=== PATIENT | female | born 1960 | race Caucasian/White ===

== ENCOUNTER → 2017-07-24 | Outpatient (CLI) | payer MEDICARE ==
--- NOTE | 2017-07-24 09:34 | XR ---
EXAMINATION TYPE: XR chest 2V DATE OF EXAM: 07/24/2017 COMPARISON: CT chest August 24, 2015 HISTORY: Assess DJD per order. Chest pain for 2 weeks per patient. TECHNIQUE: Frontal and lateral views of the chest are obtained. FINDINGS: There is no focal air space opacity, pleural effusion, or pneumothorax seen. The cardiac silhouette size is within normal limits. There is partial visualization of fusion hardware in the lum bar spine. There is some multilevel mild to moderate spurring in lower thoracic spine seen better on prior CT. IMPRESSION: No acute cardiopulmonary process. No significant change from prior CT.
== END | disposition home or self-care (01) ==
LOC: RADXRMAIN 09:10
PROVIDERS: ATTEND Physical Medicine & Rehabilitation
DX: L02.91 Cutaneous abscess, unspecified (principal)
CPT/HCPCS: 71020

== ENCOUNTER → 2017-08-27 | Outpatient (CLI) | payer MEDICARE ==
--- NOTE | 2017-08-27 09:20 | CT ---
EXAMINATION TYPE: CT brain wo con DATE OF EXAM: 08/27/2017 COMPARISON: 10/04/2014 HISTORY: 57-year-old female Headache TECHNIQUE: Examination was done in axial plane without intravenous contrast. Coronal and sagittal r econstructions performed. CT DLP: 1213 mGycm Automated exposure control for dose reduction was used. FINDINGS: There is no evidence of acute intracranial hemorrhage, acute ischemic changes, mass, mass-effect, or extra-axial fluid collection. There is no effacement of cerebral sulci or basal subarachnoid cister ns. There is no hydrocephalus. There is no midline shift. Torres-white matter distinction is preserv ed. There are mild to moderate patchy white matter hypodensities in both cerebral hemispheres. This appea rs to show some progression from 10/04/2014. Paranasal sinuses and mastoid air cells are pneumatized. Leftward nasal septal deviation. Orbits and globes are intact. IMPRESSION: 1. No acute intracranial abnormality seen. 2. [id number] patchy white matter hypodensities seem to have progressed from 10/04/2014. These are nonspecific and may relate to progressive changes of chronic small vessel ischemic disease. Demye linating process could also be considered in the correct clinical setting. MRI can be considered.
== END | disposition home or self-care (01) ==
LOC: RADCTMAIN 07:27
PROVIDERS: ATTEND Physical Medicine & Rehabilitation
DX: I67.82 Cerebral ischemia (principal); R90.82 White matter disease, unspecified
CPT/HCPCS: 70450

== ENCOUNTER → 2020-06-26 | Outpatient (CLI) | payer MEDICARE ==
--- NOTE | 2020-06-26 11:39 | USB ---
Reason for exam: clinical finding. History: Patient has history of breast cancer at age 45. Family history of breast cancer in mother at age 70 and breast cancer in grandmother at age 52. Mastectomy of both breasts, 2005. Indicated problem(s): palpable abnormality, lump or thickening, and pain in the left breast. Physical Findings: Nurse Summary: patient states "lump pooch" always but getting bigger (nurse dw). US Breast Axilla LT Left limited breast ultrasound including focal area of concern, retroareolar and axilla demonstrates no cystic or solid lesion seen. Pouching of tissue, no fluid or masses seen. These results were verbally communicated with the patient and result sheet given to the patient on 06/26/20. ASSESSMENT: Negative, BI-RAD 1 RECOMMENDATION: Clinical management of the left breast. Manage patient on a clinical basis.
--- NOTE | 2020-06-26 15:12 | CT ---
EXAMINATION TYPE: CT ChestAbdPelvis w con DATE OF EXAM: 06/26/2020 INDICATION: left side arm, shoulder, axilla, chest pain, history of breast ca COMPARISON: 08/24/2015 CT DLP: 2910.4 mGycm CONTRAST: Performed with Oral Contrast and with IV Contrast, patient injected with 100 mL of Isovue 300. TECHNIQUE: Axial images at 5 mm thick sections. Reconstructed images in the coronal plane. Delayed images through the kidneys. FINDINGS: CT CHEST: Portion of the thyroid visualized is normal. There is a 1.2 x 1.0 cm density within the right anterior medial midlung. Series 4 image 37. This is a new finding. Metastasis is not excluded. Workup with PET CT is recommended. No enlarged mediastinal or hilar adenopathy is evident. . Subtle 0.6 cm lymph node may be along the r ight diaphragm. Series 3 image 41. The ascending aorta diameter at the level of the main pulmonary artery is 3.3 cm. The main pulmonary artery diameter at the bifurcation is 2.[address] ABDOMEN: Liver: Normal Spleen: Normal Pancreas: Normal Adrenal glands: The adrenal glands are normal. Gallbladder: Surgically absent Kidneys: No masses are evident. No hydronephrosis is present. No cysts are present. Delayed images were obtained through the kidneys, which remain unremarkable. Aorta: Vascular calcification is within the aorta. Inferior vena cava: Normal. CT PELVIS: Loops of bowel within the abdomen and pelvis are normal. There are loops of bowel which are incom pletely distended or lack oral contrast limiting their evaluation. Appendix: Normal as visualized. Urinary bladder: Normal. Genitourinary structures: Uterus appears unremarkable. Adnexa are normal. Osseous structures: Diffuse osteolysis through the lumbar spine is present. There is fixation rods an d pedicle screws present. No collapse is identified. Degenerative disc changes are present. Findings appear stable from 08/24/2015. Schmorl's node or a small lytic areas within the inferior T12 vertebral body. This is new from 2015. A superior T12 Schmorl's node is stable. IMPRESSIONS: 1. New 1.2 x 1.0 cm anterior medial right upper lung field nodule. Additional workup with PET CT is r ecommended. 2. Suspicious abnormality to account for left arm pain not identified on the current CT.
--- NOTE | 2020-06-26 23:06 | NM ---
EXAMINATION TYPE: NM bone scan whole body DATE OF EXAM: 06/26/2020 COMPARISON: NONE HISTORY: Breast cancer Delayed whole-body scanning was performed following the injection of 20.7 mCi Tc 99m MDP. Images acq uired 3.5 hours post injection. FINDINGS: There is abnormal uptake along the superior anterior proximal diaphysis of the left tibia. Correlate for metastatic disease. Posttraumatic change could be considered. Radiotracer accumulation within the bilateral feet bilateral knees and shoulders is more likely relat ed to degenerative type change. Small amount of contamination is present below the pelvis. Suspicious uptake within the axial or appendicular skeleton is not otherwise evident. IMPRESSION: 1. There is some abnormal uptake along the anterior proximal diaphyseal left tibia. Plain film correl ation is recommended. 2. Lower extremity joint space degenerative type changes present
== END | disposition home or self-care (01) ==
LOC: RADNMMAIN 09:44
PROVIDERS: ATTEND Internal Medicine Hematology & Oncology
DX: C50.919 Malignant neoplasm of unspecified site of unspecified female breast (principal); M19.91 Primary osteoarthritis, unspecified site
CPT/HCPCS: 82565; 84520; 76642; 71260; 74177; 36415; 78306; A9503; Q9967

== ENCOUNTER 2020-08-16 07:51 | Emergency (ER) | payer MEDICARE ==
[2020-08-16 07:59] VITALS: RESP 18
[2020-08-16] MEDS ORDERED: MORPHINE SULFATE 4 MG/ML SYRINGE IM STA (07:59)
[2020-08-16 08:00] VITALS: TEMP 98.2
--- NOTE | 2020-08-16 08:02 | ED ---
Fall HPI - General Chief Complaint: Fall Stated Complaint: fall Time Seen by Provider: 08/16/20 07:54 Source: patient, EMS, RN notes reviewed, old records reviewed Mode of arrival: EMS - History of Present Illness Initial Comments: 6-year-old female presents emergency department today after trip and fall over a dog toy. She reports that she landed on her left wrist and forearm as well as twisted her right ankle. She concerned that she may broke her wrist and forearms up causing more pain. She has lymphedema in the left arm due to history of breast cancer. Patient states that she did take at home pain medication earlier today. She denies any fevers or chills, chest pain shortness of breath. She denies any head injury related to the fall. Her main complaint is wrist and ankle pain. - Related Data Home Medications Medication Instructions Recorded Confirmed Metoprolol Succinate (ER) [Toprol 50 mg PO DAILY 10/04/14 10/04/14 Xl] Omeprazole [PriLOSEC] 20 mg PO AC-BRKFST 10/04/14 10/04/14 Sertraline [Zoloft] 100 mg PO DAILY 10/04/14 10/04/14 methocarbamoL [Robaxin] 750 mg PO HS 10/04/14 10/04/14 oxyCODONE ER [OxyCONTIN 10MG E.R] 10 mg PO Q12HR 10/04/14 10/04/14 oxyCODONE-APAP 10-325MG [Percocet 1 each PO Q6HR PRN 10/04/14 10/04/14 10-325] Allergies Allergy/AdvReac Type Severity Reaction Status Date / Time adhesive Allergy Rash/Hives Verified 08/16/20 07:59 cephalexin monohydrate Allergy Unknown Verified 08/16/20 07:59 [From Keflex] levofloxacin [From Levaquin] Allergy Unknown Verified 08/16/20 07:59 Penicillins Allergy Unknown Verified 08/16/20 07:59 Childhood Review of Systems ROS Statement: Those systems with pertinent positive or pertinent negative responses have been documented in the HPI. ROS Other: All systems not noted in ROS Statement are negative. Past Medical History Past Medical History: COPD, GERD/Reflux, Hypertension Additional Past Medical History / Comment(s): back pain History of Any Multi-Drug Resistant Organisms: None Reported Past Surgical History: Hysterectomy Additional Past Surgical History / Comment(s): bilateral mastectomy, back surgery Past Psychological History: Depression Smoking Status: Former smoker Past Alcohol Use History: None Reported Past Drug Use History: None Reported General Exam - General Exam Comments Initial Comments: 6-year-old female. Alert and oriented 3. No distress. Limitations: no limitations General appearance: alert, in no apparent distress Head exam: Present: atraumatic, normocephalic, normal inspection Eye exam: Present: normal appearance, PERRL, EOMI. Absent: scleral icterus, conjunctival injection, periorbital swelling ENT exam: Present: normal exam, mucous membranes moist Neck exam: Present: normal inspection. Absent: tenderness, meningismus, lymphadenopathy Respiratory exam: Present: normal lung sounds bilaterally. Absent: respiratory distress, wheezes, rales, rhonchi, stridor Cardiovascular Exam: Present: regular rate, normal rhythm, normal heart sounds. Absent: systolic murmur, diastolic murmur, rubs, gallop, clicks GI/Abdominal exam: Present: soft, normal bowel sounds. Absent: distended, tenderness, guarding, rebound, rigid Extremities exam: Present: normal inspection, full ROM, normal capillary refill. Absent: tenderness, pedal edema, joint swelling, calf tenderness Left Elbow exam: Present: normal inspection, full ROM Forearm Wrist exam: Present: full ROM, tenderness, swelling. Absent: normal inspection Hand Wrist exam: Present: normal inspection, full ROM Right Lower Leg exam: Present: normal inspection, full ROM Ankle exam: Present: tenderness, swelling. Absent: normal inspection, full ROM Foot/Toe exam: Present: normal inspection, full ROM Neurovascular tendon exam: Present: no vascular compromise Back exam: Present: normal inspection Neurological exam: Present: alert, oriented X3, CN II-XII intact Psychiatric exam: Present: normal affect Skin exam: Present: warm, dry, intact, normal color. Absent: rash Course Vital Signs 08/16/20 08/16/20 07:53 08:55 Temperature 98.2 F Pulse Rate 74 80 Respiratory 18 18 Rate Blood Pressure 159/76 122/61 O2 Sat by Pulse 98 98 Oximetry Procedures - Orthopedic Splinting/Casting Injury #1 Side: left Upper Extremity Injury Location: wrist Upper Extremity Immobilizer: volar splint Injury #2 Side: right Lower Extremity Injury Location: short leg, ankle Lower Extremity Immobilizer: posterior splint, stirrup splint Medical Decision Making - Medical Decision Making 60-year-old female presents emergency Department after trip and fall landing on her left wrist and twisting her right ankle. Patient has evidence of swelling noted deformity of the wrist and swelling over the ankle. Patient was transported here via EMS. X-rays were completed and show evidence of intra- articular distal radius fracture. X-ray of the right ankle shows a distal nondisplaced fibular fracture. Patient was placed in a volar splint and placed in a posterior splint for the ankle. Patient does have lymphedema in the left arm with history of breast cancer. I discussed Patient needs to take pain medication and following up with orthopedic. Discussed return parameters. - Radiology Data Radiology results: report reviewed Left wrist and forearm show comminuted fracture within the distal radial metaphysis and I passed this with intra-articular extension. Carpal joint. Minimal impaction with dorsal angulation. The right ankle shows a nondisplaced oblique fracture through the distal fibula. Disposition Clinical Impression: Ankle fracture, Wrist fracture Disposition: HOME SELF-CARE Condition: Good Instructions (If sedation given, give patient instructions): Wrist Fracture in Adults (ED), Ankle Fracture (ED) Additional Instructions: Please use medication as discussed. Please follow up with f orthopedic. Please return to the emergency room if your symptoms increase or worsen or for any other concerns. Is patient prescribed a controlled substance at d/c from ED?: No Referrals: None,Stated [Primary Care Provider] - 1-2 days Dg Hammond DO [Medical Doctor] - 1-2 days Time of Disposition: 09:14
--- NOTE | 2020-08-16 08:48 | XR ---
EXAMINATION TYPE: XR forearm 2 views LT, XR wrist complete 4 views LT, XR ankle complete 3 views RT DATE OF EXAM: 08/16/2020 COMPARISON: NONE HISTORY: 60-year-old female with fall and pain FINDINGS: Forearm: No acute fracture seen of the more proximal to mid radius or ulna. Wrist: There is a comminuted and intra-articular fracture involving the distal radial metaphysis and epiphys is with multiple fracture lines extending to the radiolunate articular surface. There is slight impac tion and additional dorsal angulation. Right ankle: Nondisplaced oblique fracture distal fibula. Mild degenerative spurring at the tibiotalar joint. The Achilles tendon is smoothly delineated. IMPRESSION: 1. Left forearm and wrist: Comminuted fracture of the distal radial metaphysis and epiphysis with int ra-articular extension into the radiocarpal joint. Minimal impaction and mild dorsal angulation. 2. Right ankle: Nondisplaced oblique fracture distal fibula.
[2020-08-16 08:57] VITALS: BP 122/61; PULSE 80
== END 2020-08-16 10:41 | disposition home or self-care (01) ==
LOC: EC 07:51
DX: S52.522A Torus fracture of lower end of left radius, initial encounter for closed fracture (principal); S82.434A Nondisplaced oblique fracture of shaft of right fibula, initial encounter for closed fracture; F32.9 Major depressive disorder, single episode, unspecified; K21.9 Gastro-esophageal reflux disease without esophagitis; I10 Essential (primary) hypertension; Z79.899 Other long term (current) drug therapy; Z88.0 Allergy status to penicillin; Z88.1 Allergy status to other antibiotic agents; Z91.048 Other nonmedicinal substance allergy status; Z87.891 Personal history of nicotine dependence; Z90.13 Acquired absence of bilateral breasts and nipples; Z85.3 Personal history of malignant neoplasm of breast; W01.0XXA Fall on same level from slipping, tripping and stumbling without subsequent striking against object, initial encounter; Y92.009 Unspecified place in unspecified non-institutional (private) residence as the place of occurrence of the external cause
CPT/HCPCS: 73090; 73110; 73610; 99284; 96372; 29125; 29515; J2270

== ENCOUNTER → 2020-08-21 | Outpatient (CLI) | payer MEDICARE ==
--- NOTE | 2020-08-21 19:27 | CT ---
EXAMINATION TYPE: CT wrist LT wo con DATE OF EXAM: 08/21/2020 COMPARISON: HISTORY: Contusion LT wrist/pain. Post fall 08/16/20 CT DLP: 173.70 mGycm Automated exposure control for dose reduction was used. Images were obtained from the mid radius to the distal metacarpals without contrast. FINDINGS: There is slightly impacted oblique fracture through the distal radial metaphysis extending to the rad iocarpal joint. There is slight anterior angulation at the fracture site. Distal ulna is intact. Carp al bones are intact. Metacarpals are intact. Intercarpal joint spaces are normal. IMPRESSION: Slightly impacted angulated comminuted fracture distal radius with fracture line extending into the r adiocarpal joint.
== END | disposition home or self-care (01) ==
LOC: RADCTMAIN 18:47
PROVIDERS: ATTEND Orthopaedic Surgery
DX: S52.592A Other fractures of lower end of left radius, initial encounter for closed fracture (principal); S60.212A Contusion of left wrist, initial encounter; M25.571 Pain in right ankle and joints of right foot

== ENCOUNTER → 2020-09-25 | Outpatient (CLI) | payer MEDICARE ==
--- NOTE | 2020-09-25 11:53 | CT ---
EXAMINATION TYPE: CT chest w con DATE OF EXAM: 09/25/2020 COMPARISON: CT June 26, 2020 and older CTs HISTORY: follow up lung cancer, lung nodule CT DLP: 711 mGycm. Automated Exposure Control for Dose Reduction was Utilized. TECHNIQUE: CT scan of the thorax is performed following with IV Contrast, patient injected with 100 mL of Isovue 300. FINDINGS: LUNGS: The lungs remain grossly clear, there is no concerning parenchymal mass or nodule identified. Mild scattered linear fibrotic changes redemonstrated. Stable mild scarring along the heart borders bilaterally with focal 1.2 x 0.7 cm scarlike opacity of fat like density axial image 35 unchanged ravinder k through 2015 CT axial image 41. This is presumed benign. There is no pleural effusion or pneumothor ax seen. The tracheobronchial tree is patent. MEDIASTINUM: There are no greater than 1 cm hilar or mediastinal lymph nodes. No pericardial effusi on is seen. OTHER: Postsurgical change to the lumbar spine partially seen on localizer. Cholecystectomy clips are redemonstrated. Visualized liver remains low dense consistent with diffuse fatty infiltration. Moder ate multilevel spurring of spine again seen. Surgical changes medially left breast redemonstrated wit h scar tissue. Predominantly fat dense structure lateral to this could reflect large lipoma not signi ficantly changed from prior studies. IMPRESSION: No concerning enlarging or new nodules or masses.
== END | disposition home or self-care (01) ==
LOC: RADCTMAIN 10:50
PROVIDERS: ATTEND Internal Medicine Hematology & Oncology
DX: C50.912 Malignant neoplasm of unspecified site of left female breast (principal); Z88.0 Allergy status to penicillin; Z88.1 Allergy status to other antibiotic agents; Z91.048 Other nonmedicinal substance allergy status
CPT/HCPCS: 71260; Q9967

== ENCOUNTER → 2024-03-10 | Outpatient (CLI) | payer MEDICARE ==
--- NOTE | 2024-03-10 20:29 | US ---
EXAMINATION TYPE: US axilla LT DATE OF EXAM: 03/10/2024 COMPARISON: CT chest 09/25/2020 CLINICAL INDICATION: Female, 63 years old with history of I89.0 LYMPHEDEMA, NOT ELSEWHERE CL,M79.622, C50.919; pain from left neck shooting down under left axilla, pending neck surgery, h/o lt breast ca 20 years ago, bilateral mastectomy, had total lymph node dissection in left axilla, no palpable TECHNIQUE: Soft tissue scan of left axilla with grayscale and color Doppler imaging performed. FINDINGS/IMPRESSION: Normal appearing soft tissue with no focal abnormality seen. No fluid collectio n or lymphadenopathy identified.
== END | disposition home or self-care (01) ==
LOC: RADUSWWP 10:03
PROVIDERS: ATTEND Pediatrics
DX: C50.919 Malignant neoplasm of unspecified site of unspecified female breast (principal); I89.0 Lymphedema, not elsewhere classified; M79.622 Pain in left upper arm